=== PATIENT | female | born 1975 | race Caucasian/White ===

== ENCOUNTER 2017-09-03 14:32 | Emergency (ER) | payer OTHER ==
[~2017-09-03] VITALS: Ht 162.6 cm; Wt 77.7 kg
[~2017-09-03 14:32] MED LIST: DIAZ2 PO; PREN0.01 PO
[2017-09-03 14:51] VITALS: BP 153/96; PULSE 82; RESP 16; TEMP 98.7; O2SAT 100
== END 2017-09-03 16:53 | disposition left against medical advice (07) ==
LOC: PHED 14:32
DX: Z53.21 Procedure and treatment not carried out due to patient leaving prior to being seen by health care provider (principal)
CPT/HCPCS: 99281